=== PATIENT | male | born 1970 | race Caucasian/White ===

== ENCOUNTER 2016-12-26 07:59 | Day surgery (SDC) | payer OTHER ==
[2016-12-21 15:28] LABS: BASOPHILS 0.2 %; BASOPHILS ABSOLUTE 0.01 10/3/uL (0.0-0.16); EOSINOPHILS 2.1 %; EOSINOPHILS ABSOLUTE 0.13 10/3/uL (0.0-0.53); HEMATOCRIT 39.7 % (40.0-51.0); HEMOGLOBIN 12.6 g/dL (13.6-17.8); IMMATURE GRANULOCYTES 0.3 %; IMMATURE GRANULOCYTES ABSOLUTE 0.02 10/3/uL (0.0-0.11); LYMPHOCYTES 30.8 %; LYMPHOCYTES ABSOLUTE 1.88 10/3/uL (0.67-4.30); MEAN CORPUS HGB CONC 31.7 g/dL (32.0-36.0); MEAN CORPUSCULAR HEMOGLOB 30.6 pg (26.0-34.0); MEAN CORPUSCULAR VOLUME 96.4 fL (80-100); MEAN PLATELET VOLUME 10.7 fL (9.2-13.0); MONOCYTES ABSOLUTE 0.43 10/3/uL (0.21-1.20); NEUTROPHILS 59.6 %; NEUTROPHILS ABSOLUTE 3.63 10/3/uL (2.02-8.40); PLATELET COUNT 230 10/3/uL (150-400); RBC DISTRIBUTION WIDTH 13.9 % (12.0-16.0); RED CELL COUNT 4.12 10/6/uL (4.7-6.1); WHITE BLOOD CELLS 6.1 10/3/uL (4.5-10.5)
[2016-12-21 15:29] LABS: MANUAL DIFF NO %
[2016-12-21 16:00] LABS: BUN (BLOOD UREA NITROGEN) 8 MG/DL (6-23); CALCIUM, SERUM 8.7 MG/DL (8.5-10.4); CHLORIDE, SERUM 108 MMOL/L (96-112); CO2 (CARBON DIOXIDE) 30 MMOL/L (24-34); GFR AFRICAN AMERICAN 92 ML/MIN (>=60); GFR NON AFRICAN AMERICAN 80 ML/MIN (>=60); GLUCOSE, SERUM 112 MG/DL (60-99); POTASSIUM, SERUM 3.9 MMOL/L (3.5-5.3); SODIUM, SERUM 141 MMOL/L (135-148)
--- NOTE | ~2016-12-26 | OP ---
Record Of Operation [place] [id number] [facility] [place]. [address] NAME: JENS SINGH : 68 STATUS : [facility]#: [id number] AGE: 46 ADM/REG DATE : 12/26/16 MR#: [id number] REPORT SERV DATE: 12/26/16 DICTATED BY: TERRA KUMAR DATE: 12/26/16 REPORT STATUS : Draft TRANSCRIBED BY: MODRobina DATE: 12/26/16 DATE OF PROCEDURE: 12/26/2016 SERVICE: Otolaryngology. PREOPERATIVE DIAGNOSES: 1. Acquired nasal deformity. 2. Deviated nasal septum. 3. Bilateral inferior turbinate hypertrophy. POSTOPERATIVE DIAGNOSES: 1. Acquired nasal deformity. 2. Deviated nasal septum. 3. Bilateral inferior turbinate hypertrophy. PROCEDURES: 1. Repair of nasal vestibular stenosis. 2. Septoplasty. 3. Bilateral inferior turbinate reduction and outfracture. 4. Kennedy of septal cartilage for use as a graft in the nose. SURGEON: Terra Kumar MD ANESTHESIA: General endotracheal anesthesia. COMPLICATIONS: None. SPECIMENS: Nasal bone and cartilage. FINDINGS: The patient had a deviated nasal septum to the left, had inferior turbinate hypertrophy bilaterally and narrowed internal nasal vault. ESTIMATED BLOOD LOSS: 15 mL. STATEMENT OF MEDICAL NECESSITY: This is a 46-year-old male, referred to me for chronic mouth breathing and nasal airway obstruction. The patient was worked up for allergies, which were found to be negative. He had the above described mechanical obstruction and I recommended the above surgery for correction. STATEMENT OF OPERATION: The patient was brought to the operating room in supine position, transferred over to the operating room table. All pressure points were padded and general endotracheal anesthesia was established. The patient's nose was prepared with 4% cocaine- soaked pledgets and 1% lidocaine with epinephrine was injected in the skin and soft tissue envelope of the nose and the septal flaps bilaterally. The patient was then prepped and draped in usual sterile fashion. The pledgets were removed and a transcolumellar incision was marked with a surgical marking pen. Bilateral marginal incisions were made followed by Record Of Operation [place] [id number] [facility] [place]. [address] NAME: JENS SINGH : 68 STATUS : [facility]#: [id number] AGE: 46 ADM/REG DATE : 12/26/16 MR#: [id number] REPORT SERV DATE: 12/26/16 DICTATED BY: TERRA KUMAR DATE: 12/26/16 REPORT STATUS : Draft TRANSCRIBED BY: NAOMI DATE: 12/26/16 a transcolumellar incision. The columellar skin flap was elevated in the submuscular plane and connected with the marginal incisions. The skin and soft tissue envelope of the nose were then elevated in the submuscular plane, fully exposing the upper and lower lateral cartilages and the nasal dorsum. The periosteum of the dorsal nasal bone was gently elevated with a Grupo elevator. A fine rasp was then used to rasp down the bony irregularities of the nasal dorsum. Next, the anterior septal angle was developed using a #15 blade. Bilateral subperichondrial and subperiosteal septal flaps were elevated with Rachelle elevator. The upper lateral cartilages were then sharply with a 15 blade from the dorsal septal cartilage. Next, the bony cartilaginous junction, the nasal septum was bluntly divided using a Rachelle elevator. The portion of bony nasal septum that was deviated was isolated with double- action scissors, and a Hatillo dissector. The deviated portion was then removed with Verónica forceps. Next, a piece of quadrangular cartilage was harvested leaving minimum of 1.5 cm dorsal and caudal strut. The cartilage was taken to the back table and carved with a 15 blade, two maintenance worker grafts and a columellar strut graft were carved. The maintenance worker grafts were placed between the upper lateral cartilage and dorsal septal cartilage and secured with interrupted 5-0 PDS sutures. Next, conservative cephalic trim was performed to reduce the size of the nasal tip, this approximated 3 mm on both sides and was symmetric. The skin and soft tissue envelope was redraped. The patient's nose was checked for symmetry in appearance, which was acceptable. A pocket was then made between the medial crura of the lower lateral cartilage and a cartilaginous strut graft was placed. With the program assistant holding the nasal tip and desired projection and rotation, a transcolumellar stitch was performed with a 5-0 PDS suture. Once this was completed, two intradermal sutures were performed to further define the nasal tip. The skin and soft tissue envelope was then redraped over the nose and again checked for symmetry in appearance, which was the desired appearance. Next, both inferior turbinates were injected with 1% lidocaine with epinephrine. They were reduced intramurally with a Xomed microdebrider, they were then outfractured with a Boies elevator. Transcolumellar incision was then closed with interrupted 6-0 fast absorbing gut sutures followed by the internal nasal sutures, which were closed with 4-0 chromic gut sutures. Bilateral Morel splints were placed coated in bacitracin and secured to the anterior septum with a 2-0 nylon suture. The skin and face were then washed with warm saline and dried. Mastisol solution was applied to the dorsum of the nose followed by modified Steri-Strips and an Aquaplast splint. This concluded the case. The patient was turned back over to Anesthesia, where he awoke, was extubated, and transferred to the PACU in stable condition. PS/NAOMI Record Of [address] [address] NAME: JENS SINGH : 68 STATUS : [facility] PAT#: [id number] AGE: 46 ADM/REG DATE : 12/26/16 MR#: [id number] REPORT SERV DATE: 12/26/16 DICTATED BY: TERRA KUMAR DATE: 12/26/16 REPORT STATUS : Draft TRANSCRIBED BY: MODL DATE: 12/26/16 Terra Kumar MD / [id number] CC: Terra Kumar MD
[~2016-12-26 07:59] MED LIST: BEE POLLEN PO; ETODOLAC500 MG PO; NEXIUM40 PO; PROBIOTIC PO; REMERON45 MG PO; SAS500 PO; SINGULAIR1 PO; SPIRIVA INH; SYMBICORT 80/4.1 INH INH; THEO24300 PO; TURMERIC PO; ZYRTEC ALLGY10 MG PO
== END 2016-12-26 16:03 | disposition home or self-care (01) ==
LOC: SDC 07:59
PROVIDERS: Otolaryngology
PROC: 0W3Q0ZZ Control Bleeding in Respiratory Tract, Open Approach (ICD-10-PCS; 2016-12-26)
PROC: 0NSBXZZ Reposition Nasal Bone, External Approach (ICD-10-PCS; 2016-12-26)
PROC: 09QM0ZZ Repair Nasal Septum, Open Approach (ICD-10-PCS; principal; 2016-12-26 09:45)
DX: J34.2 Deviated nasal septum (principal); J45.909 Unspecified asthma, uncomplicated; J34.3 Hypertrophy of nasal turbinates; M95.0 Acquired deformity of nose; K21.9 Gastro-esophageal reflux disease without esophagitis; M06.9 Rheumatoid arthritis, unspecified; K50.90 Crohn's disease, unspecified, without complications; Z88.8 Allergy status to other drugs, medicaments and biological substances; Z79.899 Other long term (current) drug therapy; F17.210 Nicotine dependence, cigarettes, uncomplicated; Z90.49 Acquired absence of other specified parts of digestive tract; Z86.010 Personal history of colon polyps; Z98.890 Other specified postprocedural states
CPT/HCPCS: 80048; 85025; 88300; 93005; A9270-GY; J0690; J2250; J2270; J2405; J2710; J3010